=== PATIENT | female | born 1990 | race Hispanic/Latino ===

== ENCOUNTER 2019-01-04 15:16 | Emergency (ER) | payer OTHER ==
[2019-01-04 15:27] VITALS: BMI 20.1
[2019-01-04] MEDS ORDERED: Sodium Chloride 0.9% 1,000 ML IV STA (15:31)
[2019-01-04 15:33] VITALS: RESP 18; TEMP 98.3; O2SAT 100
--- NOTE | 2019-01-04 15:37 | ED PDOC ---
Arrival/HPI - General Chief Complaint: Female Genitourinary Time Seen by Provider: 01/04/19 15:17 Historian: Patient - History of Present Illness Narrative History of Present Illness (Text): 01/04/19 15:34 28 y/o A0 10 week by LMP female with no significant PMH presents to the ED c/o vaginal bleeding x 1 hour. Pt woke up from a nap approximately 1 hour ago and noticed blood on her bedsheets, prompting visit to ED. Pt had her first US with OBGYN Dr. Sawant earlier this week that confirmed IUP. Pt is taking vitamins daily. She states she had an episode of bleeding earlier in her and was told she had a subchorionic hemorrhage that has since resolved. Denies abdominal pain, nausea, vomiting, fever, chills, diarrhea, urinary symptoms, headache, dizziness, chest pain, shortness of breath, palpi tations, or any other associated symptoms. Past Medical History - Provider Review Nursing Documentation Reviewed: Yes - Infectious Disease Hx of Infectious Diseases: None - Psychiatric Hx Substance Use: No Family/Social History - Physician Review Nursing Documentation Reviewed: Yes Family/Social History: No Known Family HX Smoking Status: Never Smoked Hx Alcohol Use: No Hx Substance Use: No Allergies/Home Meds Allergies/Adverse Reactions: Allergies No Known Allergies Allergy (Verified 01/04/19 15:27) Review of Systems - Review of Systems Constitutional: Normal. absent: Fevers Eyes: Normal. absent: Vision Changes ENT: Normal. absent: Sore Throat, Sinus Congestion Respiratory: Normal. absent: SOB, Cough Cardiovascular: Normal. absent: Chest Pain, Palpitations, Syncope Gastrointestinal: Normal. absent: Abdominal Pain, Nausea, Vomiting Genitourinary Female: Vaginal Bleeding. absent: Dysuria, Frequency, Vaginal Discharge Musculoskeletal: Normal. absent: Back Pain, Neck Pain Skin: Normal. absent: Rash Neurological: Normal. absent: Headache, Dizziness Physical Exam Vital Signs Reviewed: Yes Temperature: Afebrile Blood Pressure: Normal Pulse: Regular Respiratory Rate: Normal Appearance: Positive for: Well-Appearing, Non-Toxic, Comfortable Pain Distress: None Mental Status: Positive for: Alert and Oriented X 3 - Systems Exam Head: Present: Atraumatic, Normocephalic Pupils: Present: PERRL Extroacular Muscles: Present: EOMI Conjunctiva: Present: Normal Mouth: Present: Moist Mucous Membranes Neck: Present: Normal Range of Motion. No: Meningeal Signs, MIDLINE TENDERNESS, Paraspinal Tenderness Respiratory/Chest: Present: Clear to Auscultation, Good Air Exchange. No: Respiratory Distress, Accessory Muscle Use Cardiovascular: Present: Regular Rate and Rhythm, Normal S1, S2, Peripheal Pulses Present Abdomen: Present: Normal Bowel Sounds. No: Tenderness, Distention, Peritoneal Signs, Rebound, Guarding Genitourinary/Pelvic Exam: Present: Normal External Genitalia, Vaginal Bleeding (moderate amount), Cervical os Closed. No: Vaginal Lesions, Adenexal Tenderness, Cervical Motion Tendernes, Odor Back: Present: Normal Inspection. No: CVA Tenderness, Midline Tenderness, Paraspinal Tenderness Upper Extremity: Present: Normal Inspection, Normal ROM, NORMAL PULSES, Neurovascularly Intact, Capillary Refill < 2s. No: Cyanosis, Edema, Temperature Abnormalties Lower Extremity: Present: Normal Inspection, NORMAL PULSES, Normal ROM, Neurovascularly Intact, Capillary Refill < 2 s. No: Edema, Temperature Abnormalties Neurological: Present: GCS=15, CN II-XII Intact, Speech Normal, Motor Func Grossly Intact, Normal Sensory Function, Gait Normal Skin: Present: Warm, Dry, Normal Color. No: Rashes Psychiatric: Present: Alert, Oriented x 3, Normal Insight, Normal Concentration, Normal Affect, Normal Mood Medical Decision Making ED Course and Treatment: 01/04/19 15:31 Initial Plan: * CBC, CMP * Coags * HCG quant * Type and Screen * UA * UDS * Transvaginal US * IVF 16:49 US shows single live IUP with FHR 183. Approx 10 weeks gestational age. Glucose mildly low, pt given orange juice to drink. Bloodwork and urine otherwise unremarkable. Pending T&S, hcg quant 17:34 Bloodtype AB+, no indication for rhogam Advised OBGYN followup in 48 hours for repeat testing. Pt is to be on strict bed and pelvic rest until then. Pt verbalized understanding. Diagnostic testing results and plan of care discussed with patient. Strict instructions given regarding prescription use, importance of followup, and signs/symptoms to return to ER including heavy bleeding, lightheadedness, fever, abdominal pain, or any other new/worsening symptoms. Pt verbalized understanding of discussion. Patient is A&Ox3, ambulating with steady gait, with vital signs stable for discharge. - Lab Interpretations Lab Results: 01/04/19 15:45 01/04/19 15:45 Lab Results 01/04/19 16:10: Urine Color Light yellow, Urine Appearance Clear, Urine pH 7.0, Ur Specific [place] <= 1.005, Urine Protein Negative, Urine Glucose (UA) Negativ e, Urine Ketones Negative, Urine Blood Large H, Urine Nitrate Negative, Urine Bilirubin Negative, Urine Urobilinogen 0.2, Ur Leukocyte Esterase Negative, Urine RBC 2 - 5 H, Urine WBC None, Ur Epithelial Cells 0 - 2, Urine HCG, Qual Positive 01/04/19 16:00: Blood Type Confirm AB POSITIVE 01/04/19 15:45: Blood Type AB POSITIVE, Antibody Screen Negative, BBK History Checked No verified bt 01/04/19 15:45: Beta HCG, Quant [id number] H 01/04/19 15:45: Sodium 138, Potassium 3.8, Chloride 102, Carbon Dioxide 26, Anion Gap 14, BUN 6 L, Creatinine 0.6 L, Est GFR ( Amer) > 60, Est GFR (Non-Af Amer) > 60, Random Glucose 68 L, Calcium 9.5, Total Bilirubin 0.4, AST 22, ALT 12, Alkaline Phosphatase 40, Total Protein 7.6, Albumin 4.7, Globulin 2.9, Albumin/Globulin Ratio 1.6 01/04/19 15:45: PT 12.2, INR 1.10, APTT 33.1 01/04/19 15:45: WBC 9.7, RBC 4.73, Hgb 13.7, Hct 40.0, MCV 84.6, MCH 29.0, MCHC 34.3, RDW 12.8, Plt Count 271, MPV 9.5, Neut % (Auto) 76.1 H, Lymph % (Auto) 18.2 L, Harper % (Auto) 4.9, Eos % (Auto) 0.7 L, Baso % (Auto) 0.1, Lymph # (Auto) 1.8, Harper # (Auto) 0.5, Eos # (Auto) 0.1, Baso # (Auto) 0.01, Absolute Neuts (auto) 7.37 H I have reviewed the lab results: Yes - RAD Interpretation Narrative RAD Interpretations (Text): 01/04/19 16:45 Transvaginal US: FINDINGS: UTERUS: Gestational sac: Sac diameter 40 mm equal to 9 weeks 2 days gestational age. [place]-rump length 36 mm equal to 10 weeks 4 days Heart rate: 183 bpm. age (Ultrasound estimated): 10 weeks 0 days Rae-gestational hemorrhage: None Date of delivery (Ultrasound estimated) : 08/02/2019 Uterus measures 9.9 x 6.3 x 7.1 cm. Normal in size and appearance. CERVIX: Measures 3.9 cm. Long and closed. No cervical abnormality seen. RIGHT OVARY: Measures 3.5 x 2.3 x 1.8 cm. No mass lesion. Normal flow. LEFT OVARY: Measures 3.1 x 2.1 x 2.0 cm. No solid mass. Normal flow. FREE FLUID: None. OTHER FINDINGS: None. IMPRESSION: Single live intrauterine gestation of approximately 10 weeks 0 days gestational age. No perigestational hemorrhage. Heart rate 183 beats per minute. Cervix long and closed. Radiology Orders: 01/04/19 15:30 TRANSVAGINAL [US] [employer] Instructor: Radiologist Disposition/Present on Arrival - Present on Arrival Any Indicators Present on Arrival: No History of DVT/PE: No History of Uncontrolled Diabetes: No Urinary Catheter: No History of Decub. Ulcer: No History Surgical Site Infection Following: None - Disposition Have Diagnosis and Disposition been Completed?: Yes Diagnosis: Vaginal bleeding affecting early Disposition: HOME/ ROUTINE Disposition Time: 16:45 Patient Plan: Discharge Condition: STABLE Discharge Instructions (ExitCare): Bleeding With (DC), General Bedr est Stretching Exercises Additional Instructions: Your blood type is AB+, Your hcg level today was 85,194.00 Followup in 48 hours with OBGYN for repeat testing Strict bedrest, pelvic rest Increase fluids Continue vitamins Followup with primary within 2 days Return to ER with any new/worsening symptoms Referrals: [facility] [place] [facility] [place] - Follow up with primary Norma Sawant MD [Family Provider] - Follow up with primary Vanessa Montes MD [Medical Doctor] - Follow up with primary Forms: [employer] ([employer]), WORK NOTE
[2019-01-04 16:01] LABS: BASO # 0.01 K/mm3 (0.0-2.0); BASO % 0.1 % (0.0-3.0); EOS # 0.1 (0.0-0.7); EOS % 0.7 % (1.5-5.0); HEMOGLOBIN 13.7 g/dL (12.0-16.0); LYMPH # 1.8 (1.2-3.4); LYMPH % 18.2 % (22.0-35.0); MEAN CELL VOLUME 84.6 fl (80.0-105.0); MEAN CORPUSCULAR HGB CONC 34.3 g/dl (31.0-37.0); MEAN PLATELET VOLUME 9.5 fl (7.0-11.0); MONO # 0.5 (0.1-0.6); MONO % 4.9 % (1.0-6.0); RBC 4.73 10^6/uL (3.5-6.1); RED CELL DISTRIBUTION WIDTH 12.8 % (11.5-14.5); WHITE BLOOD COUNT 9.7 10^3/uL (4.5-11.0)
[2019-01-04 16:10] LABS: ALB/GLOB RATIO 1.6 (1.1-1.8); ALBUMIN 4.7 g/dL (3.0-4.8); ALT/SGPT 12 U/L (7-56); AST/SGOT 22 U/L (14-36); BLOOD UREA NITROGEN 6 mg/dL (7-21); CALCIUM 9.5 mg/dL (8.4-10.5); GFR NON-AFRICAN AMERICAN > 60; INR 1.1; PARTIAL THROMBOPLASTIN TIME 33.1 Seconds (26.9-38.3); PROTHROMBIN TIME 12.2 SECONDS (9.4-12.5)
[2019-01-04 16:41] LABS: HCG,QUALITATIVE URINE POSITIVE (NEGATIVE); URINE APPEARANCE CLEAR (CLEAR); URINE BILIRUBIN NEGATIVE (NEGATIVE); URINE BLOOD LARGE (NEGATIVE); URINE COLOR LIGHT YELLOW (YELLOW); URINE GLUCOSE (UA) NEGATIVE (NEGATIVE); URINE LEUKOCYTE ESTERASE NEGATIVE Leu/uL (NEGATIVE); URINE PROTEIN NEGATIVE mg/dL (<30 mg/dL); URINE UROBILINOGEN 0.2 E.U./dL (<1 E.U./dL)
--- NOTE | 2019-01-04 16:42 | US ---
Date of service: 01/04/2019 PROCEDURE: OB Pelvic Ultrasound HISTORY: OB, vaginal bleeding, LMP 10/18/18 10/18/2018 COMPARISON: None available. FINDINGS: UTERUS: Gestational sac: Sac diameter 40 mm equal to 9 weeks 2 days gestational age. [place]-rump length 36 mm equal to 10 weeks 4 days Heart rate: 183 bpm. age (Ultrasound estimated): 10 weeks 0 days Rae-gestational hemorrhage: None Date of delivery (Ultrasound estimated) : 08/02/2019 Uterus measures 9.9 x 6.3 x 7.1 cm. Normal in size and appearance. CERVIX: Measures 3.9 cm. Long and closed. No cervical abnormality seen. RIGHT OVARY: Measures 3.5 x 2.3 x 1.8 cm. No mass lesion. Normal flow. LEFT OVARY: Measures 3.1 x 2.1 x 2.0 cm. No solid mass. Normal flow. FREE FLUID: None. OTHER FINDINGS: None. IMPRESSION: Single live intrauterine gestation of approximately 10 weeks 0 days gestational age. No perigestational hemorrhage. Heart rate 183 beats per minute. Cervix long and closed.
[2019-01-04 16:45] LABS: URINE EPITHELIAL CELLS 0 - 2 /hpf (0-5)
[2019-01-04 17:02] VITALS: BP 104/69; PULSE 63
== END 2019-01-04 17:33 | disposition home or self-care (01) ==
LOC: MERGE 15:16 → ED 15:16
DX: O20.9 Hemorrhage in early pregnancy, unspecified (principal); Z3A.10 10 weeks gestation of pregnancy
CPT/HCPCS: 76817; 80053; 81001; 84702; 84703; 85025; 85610; 85730; 86850; 86900; 96360; 99283; J7030